=== PATIENT | female | born 1965 | race Two or more races ===

== ENCOUNTER 2024-12-04 23:29 | Emergency (ER) | payer OTHER ==
[~2024-12-04] VITALS: Ht 165.1 cm; Wt 100.0 kg
--- NOTE | 2024-12-04 23:36 | ECG ---
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
[2024-12-04] MEDS: NITROGLYCERIN 0.4 MG SL TAB SL ONE (23:45)
[2024-12-04 23:50] LABS: Basophils # (auto) 0 10 ^3/uL (0-0.2); Basophils % (auto) 0.5 % (0.0-2.0); Eosinophils # (auto) 0.1 10 ^3/uL (0-0.8); Eosinophils % (auto) 1.2 % (0.0-7.0); Hematocrit 52.4 % (36.0-46.0); Hemoglobin 17.5 g/dL (12.2-16.2); Lymphocytes # (auto) 1.9 10 ^3/uL (0.4-5.4); Mean Corpuscular Hemoglobin 32.8 pg (28.0-32.0); Mean Corpuscular Hgb Conc. 33.5 g/dL (32.0-36.0); Mean Corpuscular Volume 98.1 fL (80.0-100.0); Monocytes # (auto) 0.7 10 ^3/uL (0-1.3); Monocytes % (auto) 8.6 % (0.0-12.0); Neutrophils # (auto) 5.8 10 ^3/uL (1.6-8.6); Neutrophils % (auto) 67.7 % (37.0-80.0); Platelet Count (auto) 255 10^3/uL (140-450); Red Blood Cells 5.34 10^6/uL (4.0-5.20); Red Cell Distribution Width 14.8 % (11.8-14.3); White Blood Cell 8.6 10^3/uL (4.4-10.8)
--- NOTE | 2024-12-04 23:55 | ED.PDOC ---
HPI Comments 59-year-old female came to the emergency room due to chest pains. Patient does have a history of hypertension, coronary artery disease, NM, status post cardiac stents. States she has been having left lateral wall chest pains yesterday radiating towards her left shoulder. Patient took 3 nitro and offered relief of the pain. Earlier today, she started having left lateral chest pains again. Patient took 2 nitro with overhead no relief. Patient denies any shortness of breath, nausea or vomiting. Blood pressure taken at home was 200/129 mmHg Chief Complaint: Chest Pain Time Seen by MD: 23:54 Reviewed Notes: Nurses Notes Allergies: Coded Allergies: Tramadol (Verified Allergy, Unknown, 12/04/24) Information Source: Patient Mode of Arrival: Ambulatory Severity: Moderate Timing: Hours Duration: Intermittent Prehospital treatment: NTG Location: Chest (L) Radiation: Shoulder (L) Quality: Pressure Onset: With Light Exertion Cardiac Risk Factors: HTN PE Risk Factors: None History of: Similar pain in past Associated Signs and Symptoms: None Past Medical History PAST MEDICAL HISTORY: CAD, HTN, NM Surgical History: PTCA 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 Hx Family History Family History: Reviewed,noncontributory to illness Social History Smoker: Non-Smoker Alcohol: Denies ETOH Use Drugs: Denies Drug Use Lives In: Home Constitutional: denies: chills, diaphoresis, fatigue, fever, malaise, sweats, weakness, others EENTM: denies: blurred vision, double vision, ear bleeding, ear discharge, ear drainage, ear pain, ear ringing, eye pain, eye redness, hearing loss, mouth pain, mouth swelling, nasal discharge, nose bleeding, nose congestion, nose pain, photophobia, tearing, throat pain, throat swelling, voice changes, others Respiratory: denies: cough, hemoptysis, orthopnea, SOB at rest, shortness of breath, SOB with excertion, stridor, wheezing, others Cardiovascular: reports: chest pain; denies: dizzy spells, diaphoresis, Dyspnea on exertion, edema, irregular heart beat, left arm pain, lightheadedness, palpitations, PND, syncope, others Gastrointestinal: denies: abdomen distended, abdominal pain, blood streaked bowels, constipated, diarrhea, dysphagia, difficulty swallowing, hematemesis, melena, nausea, poor appetite, poor fluid intake, rectal bleeding, rectal pain, vomiting, others Genitourinary: denies: abnormal vagina bleeding, burning, dyspareunia, dysuria, flank pain, frequency, hematuria, incontinence, pain, , vagina discharge, urgency, others Neurological: denies: dizziness, fainting, headache, left sided numbness, left sided weakness, numbness, paresthesia, pre-existing deficit, right sided numbness, right sided weakness, seizure, speech problems, tingling, tremors, weakness, others Musculoskeletal: denies: back pain, gout, joint pain, joint swelling, muscle pain, muscle stiffness, neck pain, others Integumetry: denies: bruises, change in color, change in hair/nails, dryness, laceration, lesions, lumps, rash, wounds, others Allergic/Immunocompromised: denies: Difficulty Healing, Frequent Infections, Hives, Itching, others Hematologic/Lymphatic: denies: anemia, blood clots, easy bleeding, easy bruising, swollen glands, others Endocrine: denies: excessive hunger, excessive sweating, excessive thirst, excessive urination, flushing, intolerance to cold, intolerance to heat, unexplained weight gain, unexplained weight loss, others Psychiatric: denies: anxiety, bipolar disorder, depression, hopeless, panic disorder, schizophrenia, sleepless, suicidal, others Physical Exam General Appearance: No Apparent Distress, Normal HEENT: Normal ENT Inspection, Pharynx Normal, TMs Normal Neck: Full Range of Motion, Non-Tender, Normal, Normal Inspection Respiratory: Chest Non-Tender, Lungs Clear, No Accessory Muscle Use, No Respiratory Distress, Normal Breath Sounds Cardiovascular: No Edema, No JVD, No Murmur, No Gallop, Normal Peripheral Pulses, Regular Rate/Rhythm Breast Exam: Deferred Gastrointestinal: No Organomegaly, Non Tender, No Pulsatile Mass, Normal Bowel Sounds, Soft Genitalia: Deferred Pelvic: Deferred Rectal: Deferred Extremities: No calf tenderness, Normal capillary refill, Normal inspection, Normal range of motion, Non-tender, No pedal edema Musculoskeletal : Apperance: Normal Neurologic: Alert, 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 Was a procedure done?: No CP Differential Dx Differential Diagnosis: Angina, Anxiety / Panic Attack Differential Diagnosis: Angina, Chest Wall Pain, Costochondritis, Esophageal reflux/spasm, Gastritis, Myocardial Infarction X-Ray, Labs, Meds, VS Vital Signs Date Time Temp Pulse Resp B/P (MAP) Pulse Ox O2 Delivery O2 Flow Rate FiO2 12/05/24 00:35 79 12/05/24 00:10 81 20 144/88 12/04/24 23:54 80 12/04/24 23:48 98.2 81 20 144/88 (106) 94 12/04/24 23:34 80 Lab Test 12/05/24 00:40 12/04/24 23:42 Range/Units Troponin I High Sensitivity 15 15 </=34 ng/L White Blood Count 8.6 4.4-10.8 10^3/uL Red Blood Count 5.34 H 4.0-5.20 10^6/uL Hemoglobin 17.5 H 12.2-16.2 g/dL Hematocrit 52.4 H 36.0-46.0 % Mean Corpuscular Volume 98.1 80.0-100.0 fL Mean Corpuscular Hemoglobin 32.8 H 28.0-32.0 pg Mean Corpuscular Hemoglobin Concent 33.5 32.0-36.0 g/dL Red Cell Distribution Width 14.8 H 11.8-14.3 % Platelet Count 255 140-450 10^3/uL Mean Platelet Volume 7.2 6.9-10.8 fL Neutrophils (%) (Auto) 67.7 37.0-80.0 % Lymphocytes (%) (Auto) 22.0 10.0-50.0 % Monocytes (%) (Auto) 8.6 0.0-12.0 % Eosinophils (%) (Auto) 1.2 0.0-7.0 % Basophils (%) (Auto) 0.5 0.0-2.0 % Neutrophils # (Auto) 5.8 1.6-8.6 10 ^3/uL Lymphocytes # (Auto) 1.9 0.4-5.4 10 ^3/uL Monocytes # (Auto) 0.7 0-1.3 10 ^3/uL Eosinophils # (Auto) 0.1 0-0.8 10 ^3/uL Basophils # (Auto) 0 0-0.2 10 ^3/uL Nucleated Red Blood Cells 0.0 % Sodium Level 140 136-145 mmol/L Potassium Level 4.0 3.5-5.1 mmol/L Chloride Level 110 H 98-107 mmol/L Carbon Dioxide Level 23 20-31 mmol/L Anion Gap 7 5-15 Blood Urea Nitrogen 13 9-23 mg/dL Creatinine 0.68 0.550-1.02 mg/dL Glomerular Filtration Rate Calc 100 >90 mL/min BUN/Creatinine Ratio 19.1 10.0-20.0 Serum Glucose 110 H 74-106 mg/dL Calcium Level 10.4 8.7-10.4 mg/dL Current Medications Medications (Trade) Dose Ordered Sig/Ronnell Route Start Time Stop Time Status Last Admin Ondansetron HCl (Zofran) 4 mg ONCE ONCE IV 12/04/24 23:45 12/04/24 23:46 DC 12/05/24 00:10 Morphine Sulfate 4 mg ONCE ONCE IV 12/04/24 23:45 12/04/24 23:46 DC 12/05/24 00:10 Aspirin 324 mg ONCE ONCE PO 12/04/24 23:45 12/04/24 23:46 DC 12/05/24 00:10 CHEST RADIOGRAPH Indication: CP Technique: Single frontal view of the chest was obtained Comparison: None FINDINGS: Lines and Tubes: None Lungs: Clear Pleura: No effusion. No pneumothorax. Cardiomediastinal contours: Mild cardiomegaly. Bones: Unremarkable IMPRESSION: Clear lungs. Time of 1ST Reevaluation: 23:46 Reevaluation 1ST: Unchanged Patient Education/Counseling: Diagnosis, Treatment Family Education/Counseling: No Family Present Departure 1 Departure Time of Disposition: 01:46 (Patient presented with chest pain that was concerning for possible STEMI, ACS, PE, Pneumonia, Muscle Strain, COPD, Dissection. Data: 1. I ordered and reviewed the result of at least 3 labs including a CBC, BMP, and Troponin. 2. I independently interpreted the following tests: EKG which shows normal sinus and Chest X-ray which shows benign chest.Risk:This patient has a high risk of morbidity due to further diagnostic testing or treatment and may suffer from an acute cardiac or respiratory disorder. Workup reveals concern for ACS and patient should be admitted for further workup and possible expert consultation. ) Impression: Primary Impression: Acute chest pain Disposition: 09 ADMITTED INPATIENT Admit to: Tele Condition: Serious Critical Care Note Critical Care Time?: Yes (35 min-critical care time only) Critical care comment: Active chest pains Authorized and Performed by: Katherine Bowser MD Total critical care time: Approximately 38 minutes Due to a high probability of clinically significant, life threatening deterioration, the patient required my highest level of preparedness to intervene emergently and I personally spent this critical care time directly and personally managing the patient. This critical care time included obtaining a history; examining the patient; pulse oximetry; ordering and review of studies; arranging urgent treatment with development of a management plan; evaluation of patient's response to treatment; frequent reassessment; and, discussions with other providers. This critical care time was performed to assess and manage the high probability of imminent, life-threatening deterioration that could result in multi-organ failure. It was exclusive of separately billable procedures and treating other patients and teaching time. Please see my other sections and the rest of the note for further information on patient assessment and treatment. Stability Stability form required: No Heart Score Heart Score: Heart Score Response (Comments) Value History Moderate Suspicious 1 EKG Repolarization Disturb 1 Age 45-64 1 Risk Factors >3 or Hx ASHD 2 Troponin Normal limit 0 Total 5 I personally scribed for KATHERINE BOWSER MD ([email or web address]) on 12/04/24 at 23:54. Electronically submitted by Miles Parks ([employer]). I personally scribed for KATHERINE BOWSER MD ([email or web address]) on 12/05/24 at 00:17. Electronically submitted by Miles Parks ([employer]). KATHERINE BOWSER MD Dec 04, 2024 23:54
--- NOTE | 2024-12-05 00:02 | DVH ---
CHEST RADIOGRAPH Indication: CP Technique: Single frontal view of the chest was obtained Comparison: None FINDINGS: Lines and Tubes: None Lungs: Clear Pleura: No effusion. No pneumothorax. Cardiomediastinal contours: Mild cardiomegaly. Bones: Unremarkable IMPRESSION: Clear lungs.
[2024-12-05 00:05] LABS: Sodium 140 mmol/L (136-145)
[2024-12-05 00:06] LABS: Anion Gap 7 (5-15); Carbon Dioxide 23 mmol/L (20-31)
[2024-12-05] MEDS: ASPirin 81 mg TAB PO ONE (00:10)
[2024-12-05] MEDS: ONDANSETRON HCL 4 MG/2 ML VIAL IV ONE (00:10)
[2024-12-05] MEDS: MORPHINE SULFATE 4 MG/ML SYR/VIAL IV ONE (00:10)
[2024-12-05 00:11] LABS: BUN/Creatinine Ratio 19.1 (10.0-20.0); Blood Urea Nitrogen 13 mg/dL (9-23)
[2024-12-05 00:15] LABS: Calcium 10.4 mg/dL (8.7-10.4); Chloride 110 mmol/L (98-107); Glucose 110 mg/dL (74-106)
[2024-12-05 03:33] VITALS: BP 100/73; TEMP 97.8
[2024-12-05 03:34] VITALS: PULSE 86; RESP 17; O2SAT 91
--- NOTE | 2024-12-05 03:48 | ECG ---
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
[2024-12-05] MEDS ORDERED: ONDANSETRON HCL 4 MG/2 ML VIAL IV ONE (04:30)
[2024-12-05] MEDS ORDERED: MORPHINE SULFATE 4 MG/ML SYR/VIAL IV ONE (04:30)
== END 2024-12-05 05:10 | disposition left against medical advice (07) ==
LOC: EDBD 23:29 → ER 23:29
DX: R07.89 Other chest pain (principal); I10 Essential (primary) hypertension; I25.2 Old myocardial infarction; I25.10 Atherosclerotic heart disease of native coronary artery without angina pectoris; Z88.5 Allergy status to narcotic agent; Z95.5 Presence of coronary angioplasty implant and graft
CPT/HCPCS: 36415; 71045; 80048; 84484; 85025; 93005; 96374; 96375; 99285; J2270; J2405

== ENCOUNTER 2025-06-12 12:04 | Inpatient (IN) | payer OTHER ==
[~2025-06-12] VITALS: Ht 165.1 cm; Wt 90.9 kg
[2025-06-12 13:10] LABS: Potassium 4.5 mmol/L (3.5-5.1); Sodium 144 mmol/L (136-145)
[2025-06-12 13:11] LABS: Anion Gap 9 (5-15); Calcium 9.2 mg/dL (8.7-10.4); Carbon Dioxide 25 mmol/L (20-31); Hematocrit 53.3 % (36.0-46.0); Hemoglobin 18.0 g/dL (12.2-16.2); Mean Corpuscular Hemoglobin 33.5 pg (28.0-32.0); Mean Corpuscular Volume 98.8 fL (80.0-100.0); Nucleated Red Blood Cells % 0.8 %
[2025-06-12 13:16] LABS: BUN/Creatinine Ratio 22.2 (10.0-20.0); Blood Urea Nitrogen 16 mg/dL (9-23); Glucose 87 mg/dL (74-106)
[2025-06-12 13:27] LABS: Chloride 110 mmol/L (98-107)
--- NOTE | 2025-06-12 13:36 | DVH ---
EXAM: XY CHEST PORTABLE TECHNIQUE: Single frontal chest radiograph CLINICAL HISTORY: sob COMPARISON: XY CHEST PORTABLE on DOS: 12/04/24 Findings/Impression: Frontal chest radiograph demonstrates no acute osseous or superficial soft tissue abnormalities. The trachea is midline. Cardiomegaly with pulmonary vascular congestion. Mild bibasilar atelectasis, [id number]-left. No pneumothorax, pleural effusions, or consolidations.
[2025-06-12] MEDS: HYDROcodone-ACET 10/325MG TAB PO ONE (13:40)
--- NOTE | 2025-06-12 14:09 | ECG ---
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
[2025-06-12] MEDS: ALBUTEROL SULF 2.5 MG/0.5ML(0.5%) NEB SOLN NEB ONE (16:46)
[2025-06-12] MEDS: IPRATROPIUM BROM 0.5 MG/2.5ML INH SOL NEB ONE (16:46)
[2025-06-12] MEDS: cefTRIAXone 1GM/50ML D5W 50 ML IV ONE (17:34)
[2025-06-12] MEDS: methylPREDNISolone SOD SUCC 125 MG/2 ML VL IV ONE (17:34)
[2025-06-12] MEDS: hydrALAZINE HCL 20 MG/ML VL IV ONE (19:02)
[2025-06-12] MEDS: ONDANSETRON HCL 4 MG/2 ML VIAL IV ONE (19:03)
[2025-06-12] MEDS: MORPHINE SULFATE 4 MG/ML SYR/VIAL IV ONE (19:03)
[2025-06-12] MEDS: AZITHROMYCIN 500MG/ 250ML 250 ML IV ONE (19:09)
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
[2025-06-12] MEDS ORDERED: ACETAMINOPHEN 325 MG TAB PO PRN (19:30)
[2025-06-12] MEDS ORDERED: DOCUSATE SOD 100 MG CAP PO PRN (19:30)
[2025-06-12] MEDS ORDERED: NITROGLYCERIN 0.4 MG SL TAB SL PRN (19:30)
[2025-06-12] MEDS ORDERED: hydrALAZINE HCL 20 MG/ML VL IV PRN (19:30)
[2025-06-12] MEDS: SODIUM CHLOR 0.9% PF (SALINE LOCK) 10ML VIAL/SYR IV SCH (22:30)
[2025-06-12] MEDS: ONDANSETRON HCL 4 MG/2 ML VIAL IV PRN (22:57)
[2025-06-12] MEDS: MORPHINE SULFATE INJ 2 MG/ml SYRG IV PRN (22:57)
[2025-06-12] MEDS: HYDROcodone-ACET 5/325MG TAB PO PRN (23:43)
[2025-06-13] VITALS (9 sets, daily range): BP systolic 124–157; BP diastolic 40–118; PULSE 41–93; RESP 12–21; TEMP 36.7; O2SAT 93–98
[2025-06-13 06:01] LABS: Hematocrit 50.5 % (36.0-46.0); Hemoglobin 17.0 g/dL (12.2-16.2); Mean Corpuscular Hemoglobin 32.8 pg (28.0-32.0); Mean Corpuscular Volume 97.2 fL (80.0-100.0); Nucleated Red Blood Cells % 0.2 %
[2025-06-13 06:12] LABS: Alanine Aminotransferase 22 U/L (7-40); Albumin 4.5 g/dL (3.2-4.8); Alkaline Phosphatase 107 U/L (46-116); Anion Gap 8 (5-15); BUN/Creatinine Ratio 20.0 (10.0-20.0); Bilirubin, Total 0.4 mg/dL (0.2-1.0); Blood Urea Nitrogen 13 mg/dL (9-23); Calcium 9.2 mg/dL (8.7-10.4); Carbon Dioxide 23 mmol/L (20-31); Glucose 94 mg/dL (74-106); Potassium 5.1 mmol/L (3.5-5.1); Sodium 141 mmol/L (136-145); Total Protein 6.9 g/dL (5.7-8.2)
[2025-06-13 06:17] LABS: Chloride 110 mmol/L (98-107)
--- NOTE | 2025-06-13 11:56 | DVHSR ---
APPROVED REPORT EXAM: Two-dimensional and M-mode echocardiogram with Doppler and color Doppler. Blood Pressure: 149/118 mmHg INDICATION Chest Pain R/O ACS DIMENSIONS LVDd4.6 (3.8-5.7cm)LA (2D)4.6 (1.9-4.0cm)Aortic Root3.5 (2.0-3.7cm) LVDs2.4 (2.5-4.0cm)LA (MM) (1.9-4.0cm)Aortic Cusp Exc1.7 (1.5-2.0cm) EF (%) 79.0 (55-70%)Rt. Atrium3.7 (1.9-4.0cm)Asc. Aorta cm IVSd2.1 (0.7-1.1cm)RV (D) (1.8-2.4cm) PWd1.5 (0.7-1.1cm) Mitral Valve MitralMitral Stenosis E wave0.80m/sMV Mean GR.mmHg A wave1.34m/sMV Peak GR.mmHg E/A ratio0.62D MVAcm2 DECEL [id number] 1/2 Timems Aortic Valve Aortic ValveAortic Stenosis V11.48m/Eddi Mean GR.7mmHg V21.67m/Eddi Peak GR.11mmHg LVOT Diameter2.5 (1.8-2.4cm)Doppler AVA4.35cm2 Tricuspid Valve TR Velocity2.71m/s [id number] Other Information Technically limited study due to body habitus and patient position. Conclusion lvef 60% severe LVH left atrium enlarged no severe valve abnormalities noted
[2025-06-13] MEDS: ENOXAPARIN SOD 40 MG/0.4 ML SYRINGE SC SCH (13:59)
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
[2025-06-13 15:34] LABS: Triglycerides 79.0 mg/dL (< 150)
[2025-06-13 15:35] LABS: Magnesium 2.0 mg/dL (1.6-2.6)
[2025-06-13 15:36] LABS: Cholesterol 181.0 mg/dL (< 200)
[2025-06-13 15:56] LABS: HDL Cholesterol 74.0 mg/dL (40-59)
--- NOTE | 2025-06-13 17:06 | DVH ---
Exam: US CHEST ULTRASOUND Clinical History: BUMP ON HER CHEST Comparison: XY CHEST PORTABLE on DOS: 06/12/25, XY CHEST PORTABLE on DOS: 12/04/24 Technique: Targeted sonographic evaluation of the soft tissues of the chest was obtained utilizing grayscale an d color Doppler imaging. Findings/Impression: There is no evidence for drainable collection. There is no evidence for solid or cystic mass in the site. No vascular abnormalities identified at this site.
[2025-06-13 17:27] LABS: Urine Protein, UAD 1+ (Negative)
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
[2025-06-13] MEDS: LOSARTAN POTASSIUM 50 MG TAB PO ONE (18:39)
[2025-06-13] MEDS ORDERED: ATORVASTATIN 20 MG TAB PO SCH (22:00)
--- NOTE | 2025-06-14 06:36 | ECG ---
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
[2025-06-14] MEDS ORDERED: LOSARTAN POTASSIUM 50 MG TAB PO SCH (10:00)
[2025-06-14] MEDS ORDERED: CLOPIDOGREL BISULFATE 75 MG TAB PO SCH (10:00)
== END 2025-06-13 19:27 | disposition home or self-care (01) | DRG 305 ==
LOC: ER 12:04 → OVERFLOW 19:20 → WEST WING 06-13 15:54
PROVIDERS: ADMIT Internal Medicine Geriatric Medicine; ATTEND Internal Medicine Geriatric Medicine
DX: I16.0 Hypertensive urgency (principal); R07.89 Other chest pain; J44.9 Chronic obstructive pulmonary disease, unspecified; I10 Essential (primary) hypertension; G89.4 Chronic pain syndrome; I25.10 Atherosclerotic heart disease of native coronary artery without angina pectoris; E78.5 Hyperlipidemia, unspecified; J98.4 Other disorders of lung; Z98.61 Coronary angioplasty status; Z87.891 Personal history of nicotine dependence; Z82.49 Family history of ischemic heart disease and other diseases of the circulatory system; I25.2 Old myocardial infarction; Z88.8 Allergy status to other drugs, medicaments and biological substances
CPT/HCPCS: 36415; 71045; 76604; 80048; 80053; 80061; 81001; 83036; 83735; 84443; 84484; 85025; 93005; 93306; 94640; 99291; 99292; G0378; J2405